=== PATIENT | male | born 1965 | race Caucasian/White ===

== ENCOUNTER 2024-12-10 10:52 | Emergency (ER) | payer MEDICAID, SELFPAY ==
[2024-12-10 10:54] VITALS: BP 126/83; PULSE 77; RESP 18; TEMP 36.9; O2SAT 96; BMI 26.7
--- NOTE | 2024-12-10 11:02 | ED_ITS ---
HPI - General Adult General Date Seen: 12/10/24 Chief complaint: Difficulty Swallowing Stated complaint: difficulty swallowing Time Seen by Provider: 12/10/24 11:01 History of Present Illness HPI narrative: Very pleasant 59-year-old male who has a past medical history of hiatal hernia, seasonal allergies. He is generally healthy. He does have a history of having food bolus stuck in esophagus in the past (years ago) apparently once he had to come to the ER and the food bolus passed after usage of EZ gas. On another episode he required EGD to push the food down. It sounds like he has not had anything stuck in his esophagus for years. He is not only long-term PPI. He does not have any previous knowledge of a diagnosis of esophageal stricture, esophageal cancer or tumor, but he knows he has a hiatal hernia. He was eating breakfast this morning (a breakfast sandwich with sausage) when a piece of the sausage became stuck in his esophagus. He feels that it is roughly at the level of his collar bones. Is not really painful but it does feel like pressure. It obstruction is esophagus any cannot swallow liquids. He tried drinking some water to wash it down but the water did not pass. He tried drinking a carbonated beverage to wash it down but the carbonated beverage would not pass. He is not having any trouble breathing. No change in his voice. No abdominal pain. No chest pain. No back pain. Related Data Previous Rx's ?Medication ?Instructions ?Recorded omeprazole 40 mg capsule,delayed 40 mg PO DAILY #30 caps 12/10/24 release Allergies Allergy/AdvReac Type Severity Reaction Status Date / Time No Known Drug Allergies Allergy Verified 12/10/24 11:00 [facility] Social History Smoking Status: Current every day smoker Do you use any of these nicotine containing products: None Second hand tobacco smoke exposure: Yes How often do you have a drink containing alcohol: 4 or more times a week How many standard drinks containing alcohol do you have on a typical day: 1 or 2 How often do you have six or more drinks on one occasion: Never AUDIT-C Alcohol total score: 4 Non-prescribed substance use: denies use service: No Exam Narrative: Exam Narrative: Constitutional: Appears well-developed and well-nourished. Alert. Conversant. Non toxic. Polite. Protecting his airway. Phonation normal. No stridor. HENT: Head: Atraumatic. Nose: Nose normal. Mouth/Throat: Oral mucosa is clear and moist. no trismus. Pharynx normal. Tonsils symmetric. No tonsillar enlargement, erythema, or exudate. Eyes: Conjunctivae normal. EOM normal. Pupils equal, round, and reactive to light. No scleral icterus. Neck: Normal range of motion. Neck supple. No tracheal deviation present. Cardiovascular: Normal rate, regular rhythm. No gallop. No friction rub. No murmur heard. Pulmonary/Chest: Effort normal. No stridor. No respiratory distress. No wheezes. No rales. No rhonchi . No tenderness. No chest wall or neck crepitus. Abdominal: Soft. No distension. No mass. No tenderness. No rebound. No guarding. Musculoskeletal: RUE: Normal range of motion. No tenderness. No deformity LUE: Normal range of motion. No tenderness. No deformity RLE: Normal range of motion. No tenderness. No deformity LLE: Normal range of motion. No tenderness. No deformity Lymph: No cervical adenopathy. Neurological: Alert and oriented to person, place, and time. Normal strength. CN II-VII intact. No sensory deficit. GCS eye subscore is 4. GCS verbal subscore is 5. GCS motor subscore is 6. Normal coordination Skin: Skin is warm and dry. No rash noted. No pallor. Normal capillary refill. Psychiatric: Normal mood. Normal affect. Const: Vital Signs, click to edit/add: Vital Signs - 24 hr 12/10/24 10:54 12/10/24 12:09 Temperature 98.5 F Pulse Rate [Pulse Oximeter] 77 77 Respiratory Rate 18 16 Blood Pressure [Ri ght Upper Arm] 126/83 123/79 Pulse Oximetry 96 Oxygen Delivery Me thod Room Air Course Course ED Course: Patient evaluated in ER room 1. Nurses place an IV. I had ordered glucagon EZ gas. We attempted passage of the food bolus by EZ gas alone prior to administration of glucagon. Patient tolerated it well and the food bolus passed. He was subsequently tolerating p.o. and not having any trouble swallowing or ongoing signs of obstruction. There were no signs of other complication. Vital Signs Vital signs: Initial Vital Signs Temperature 98.5 F 12/10/24 10:54 Temperature Source Temporal Artery Scan 12/10/24 10:54 Pulse Rate 77 12/10/24 10:54 Respiratory Rate 18 12/10/24 10:54 Blood Pressure 126/83 12/10/24 10:54 Blood Pressure Mean 97 12/10/24 10:54 Blood Pressure Position Sitting 12/10/24 10:54 Pulse Oximetry 96 12/10/24 10:54 Oxygen Delivery Method Room Air 12/10/24 10:54 Vital Signs Temperature 98.5 F 12/10/24 10:54 Pulse Rate 77 12/10/24 10:54 Respiratory Rate 18 12/10/24 10:54 Blood Pressure 126/83 12/10/24 10:54 Pulse Oximetry 96 12/10/24 10:54 Oxygen Delivery Method Room Air 12/10/24 10:54 Temperature 98.5 F 12/10/24 10:54 Pulse Rate 77 12/10/24 12:09 Respiratory Rate 16 12/10/24 12:09 Blood Pressure 123/79 12/10/24 12:09 Pulse Oximetry 96 12/10/24 10:54 Oxygen Delivery Method Room Air 12/10/24 10:54 Medications Administered Medications: Discontinued Medications Generic Name Dose Route Start Last Admin Trade Name Freq PRN Reason Stop Dose Admin Simethicone/Sodium Bicarb/Citric Ac 1 each 12/10/24 11:15 12/10/24 11:37 Simethicone/Sod Bicarb/Cit Ac 1 Each Gran.Ef.Pk PO 12/10/24 11:16 1 each ONCE ONE Administration Medical Decision Making [facility] Narrative Medical decision making narrative: This patient presents for evaluation of a piece of breakfast thoughts it stuck in his esophagus (about the level of clavicles) with inability to swallow solids or liquids. Has been present for about 1 hour prior to evaluation here in the ER. This is consistent with esophageal bolus/foreign body esophagus. The offending bolus is likely a piece of breakfast sausage. Patient says he has bad teeth and needs dentures so he has a hard time chewing his food into small bits. He also has a history of previous esophageal food boluses over the past several years. He is not on any long-term PPI but does have a known hiatal hernia. We attempted passage with nitro sl, glucagon IV and EZ gas. This medication was effective in passage of the bolus. Patient was able to drink a large amount of liquids and discomfort was gone indicating that the bolus has passed. We will start patient on scheduled PPI and have them follow up with GI this week for endoscopy. Unclear if this is a stricture, mass or other etiology for the esophageal narrowing and patient understands this. Will need formal diagnosis by endoscopy. Liquid diet and very soft diet until endoscopy. Prescription for Prilosec. Recommend close outpatient follow-up for endoscopy. Discharge Plan Discharge Clinical Impression: Obstruction of esophagus due to food impaction Patient Disposition: Home, Self-Care Condition: Stable Instructions: Food Impaction (ED) Additional Instructions: As we discussed, I am very glad that the food was able to past 3 or esophagus. Is very important for you to follow-up for an endoscopy to check your esophagus and find out why this food was getting stuck. You should receive a phone call from the [facility] endoscopy schedulers on Thursday to set up the procedure. If you do not hear from them by Thursday, please call the [facility] at [phone]. Most of the time, food gets stuck in your esophagus because of scar tissue from acid garcia. Please start on the stomach acid medicine take it once per day until your doctors tell you it is okay to stop. For the next couple of weeks, try to stick to clear liquids, soft foods. Avoid tough or chewy food such as chicken, steak, sausage) Prescriptions: New omeprazole 40 mg capsule,delayed release(DR/EC) 40 mg PO DAILY Qty: 30 0RF Follow Up/Referrals: Provider,Not a Local [Primary Care Provider] - Stand Alone Forms: [facility] Info Instructions
[2024-12-10] MEDS: SIMETHICONE/SOD BICARB/CIT AC 1 EACH GRAN.EF.PK PO (11:37)
[2024-12-10 12:09] VITALS: BP 123/79; PULSE 77; RESP 16
--- OUTSIDE RECORDS SUMMARY | 2024-12-11 17:24 | XMS_ITS | Clinical Summary ---
Author Organization [facility] Address [facility] [place] [address] Care Team Providers Care Food Preservation Scientist Name Role Phone Pcp, No Primary Care Provider Unavailabl e Allergies No known active allergies Medications atorvastatin (LIPITOR) 20 mg tablet Take 20 mg by mouth. 12/11/2015 Active ranitidine (ZANTAC) 150 mg tablet Take 150 mg by mouth. 08/05/2016 Active ibuprofen (ADVIL; MOTRIN) 600 mg tablet Every 6 - 8 hours PRN 02/02/2014 Active tiZANidine (ZANAFLEX) 4 mg tabletIndication s:Back strain, initial encounter Take 1 tablet by mouth every 6 hours if needed for Muscle Spasm. 10 tablet 05/14/2017 Active Active Problems Problem Noted Date Diagnosed Date Eosinophilic esophagitis 03/31/2019 Overview (03/31/2019): EGD 03/2019 EoE, food impaction Patient non adherence 04/29/2017 Overview (07/11/2022): Overview: Erratic filling of statin medication (per insurance record) Mar 2017 GERD (gastroesophageal reflux disease) 6 Health care maintenance 12/11/2015 Right elbow pain 12/11/2015 Smoking 11/15/2015 HIV exposure 03/06/2014 Overview (07/11/2022): Overview: PrEP for prevention of HIV infection Family History Medical History Relation Name Comments Cancer Mother lung Relation Name Status Comments Mother Social History Tobacco Use Types Packs/Day Years Used Date Smoking Tobacco: Every Day Cigarettes Smokeless Tobacco: Never Tobacco Cessation:Ready to Q uit: No; Counseling Given: Yes Alcohol Use Standard Drinks/Week Comments Yes 0 (1 standard drink = 0.6 oz pur e alcohol) 2 per night Social Connections Answer Date Recorded Frequency of Communication with Friends and Fami ly Not on file 07/11/2022 Sex and Gender Information Value Date Recorded Sex Assigned at Not on file Legal Sex Male 7:28 AM TAKER DOWN Gender Identity Not on file Sexual Orientation Not on file Obstetrics History Last Filed Vital Signs Vital Sign Reading Time Taken Comments Blood Pressure 128/80 06/16/2017 7:57 AM TAKER DOWN Pulse 68 06/16/2017 7:57 AM TAKER DOWN Temperature 36.4 C (97.6 F) 06/16/2017 7:57 AM TAKER DOWN Respiratory Rate 18 11/14/2007 6:44 PM CDT Oxygen Saturation 100% 06/16/2017 7:57 AM TAKER DOWN Inhaled Oxygen Concentration - - Weight 83.9 kg (185 lb) 06/16/2017 7:57 AM TAKER DOWN Height 167.5 cm (5' 5.95) 05/07/2017 3:36 PM CD T Body Mass Index 29.91 05/07/2017 3:36 PM CDT Plan of Treatment Health Maintenance Due Date Last Done Comments Tdap 1974 Depression screening for age 12+ 1975 HIV for age 15-65 1978 Hepatitis C screening for age 18-79 1981 Tetanus booster 1983 Colonoscopy through age 75 2008 Lipids for age 45-75 2008 Pneumococcal series for age 50+ (1 of 1 - PCV) 2013 Zoster (shingles) series for age 50+ (1 of 2) 2013 BMI (ht and wt on same day) for age 18+ 05/07/2018 05/07/2017, 05/04/2017, 12/17/2016 COVID-19 vaccine series (2023- season) 2024 06/12/2021, 11/09/2020, 10/19/2020 Influenza Vaccine (Season Ended) 2025 RSV vaccine for adults or pr egnancy (1 - 1-dose 75+ series) 2038 Insurance [facility] Care Teams Food Preservation Scientist Relationship Specialty Start Date End Date Pcp, No . PCP - General 12/17/16
== END 2024-12-10 12:10 | disposition home or self-care (01) ==
PROVIDERS: Emergency Provider Emergency Medicine
DX: T18.128A Food in esophagus causing other injury, initial encounter (principal)
CPT/HCPCS: 99282; 99283

== ENCOUNTER 2025-02-06 09:32 | Outpatient (CLI) | payer MEDICAID, SELFPAY ==
--- NOTE | 2025-02-06 10:24 | P.ANES_ITS ---
Anesthesia Charges Start Date/Time Anesthesia Start Date: 02/06/25 Anesthesia Start Time: 10:05 Stop Date/Time Anesthesia Stop Date: 02/06/25 Anesthesia Stop Time: 10:22 Coding CPT Codes CPT Codes: ANES UPR GI NDSC PX NOS - 33554 ([id number]) P1 - NORMAL HEALTHY PATIENT, QK - PER DIEM INTERPRETER 2-4 CNCRNT ANES PROC, QX - FUR PULLER SVDain W/ MED DIRECTION
--- NOTE | 2025-02-06 10:24 | W.ANESCHARGE ---
Anesthesia Charges Start Date/Time Anesthesia Start Date: 02/06/25 Anesthesia Start Time: 10:05 Stop Date/Time Anesthesia Stop Date: 02/06/25 Anesthesia Stop Time: 10:22 Coding CPT Codes CPT Codes: ANES UPR GI NDSC PX NOS - 81618 ([id number]) P1 - NORMAL HEALTHY PATIENT, QK - NAV[employer] MATERIAL INSPECTOR 2-4 CNCRNT ANES PROC, QX - PRE CODER SVDain W/ MED DIRECTION
--- NOTE | 2025-02-06 10:30 | P.ANES_ITS ---
Anesthesia Charges Start Date/Time Anesthesia Start Date: 02/06/25 Anesthesia Start Time: 10:05 Stop Date/Time Anesthesia Stop Date: 02/06/25 Anesthesia Stop Time: 10:22 Coding CPT Codes CPT Codes: ANES UPR GI NDSC PX NOS - 24792 ([id number]) QK - WORD PROCESSING OPERATOR 2-4 CNCRNT ANES PROC, QX - SET UP MECHANIC HEADING MACHINES SVC W/ MED DIRECTION, P1 - NORMAL HEALTHY PATIENT
--- NOTE | 2025-02-06 10:30 | W.ANESCHARGE ---
Anesthesia Charges Start Date/Time Anesthesia Start Date: 02/06/25 Anesthesia Start Time: 10:05 Stop Date/Time Anesthesia Stop Date: 02/06/25 Anesthesia Stop Time: 10:22 Coding CPT Codes CPT Codes: ANES UPR GI NDSC PX NOS - 97735 ([id number]) QK - DEPUTY SHERIFF COURT SERVICES 2-4 CNCRNT ANES PROC, QX - COMMUNITY PHARMACIST SVC W/ MED DIRECTION, P1 - NORMAL HEALTHY PATIENT
== END 2025-02-06 09:33 | disposition home or self-care (01) ==
LOC: OP CLINIC 09:35
PROVIDERS: Visit Provider Surgery
DX: R13.10 Dysphagia, unspecified (principal); K44.9 Diaphragmatic hernia without obstruction or gangrene
CPT/HCPCS: 00731; 43239; 88305; J2704